=== PATIENT | female | born 1990 | race Caucasian/White ===

== ENCOUNTER 2017-04-16 05:14 | Day surgery (SDC) | payer OTHER ==
[~2017-04-16] VITALS: Ht 162.6 cm; Wt 54.4 kg
[~2017-04-16 05:14] MED LIST: AMOXICILLIN500 M1 PO; AMOXICILLIN500 MG PO; ATARAX,VISTARIL25 MG PO; BENADRYL25 MG PO; CEFDINIR300 MG PO; CLEOCIN300 MG PO; ENDOCET 5-3251 EACH PO; FLOMAX0.4 MG PO; IBUPROFEN800 MG PO; JUNEL1 EAC1 PO; KEFLEX500 MG PO; KENALOG,ARISTOC80 G1 TP; MOTRIN600 MG PO; NORCO 7.5/321 TABLET PO; PEN-VEE K,VEET500 MG PO; PNV PRENATAL P1 EACH PO; PRENATAL TABLE1 EAC3 PO; PRILOSEC20 MG PO; TYLENOL WITH C1 EACH PO
[2017-04-16 05:56] VITALS: BP 100/59
[2017-04-16] MEDS ORDERED: MOTRIN800 MG PO (08:30)
[2017-04-16] MEDS ORDERED: PERCOCET 5/31 TABLET PO (08:30)
[2017-04-16 09:48] VITALS: BP 118/41
[2017-04-16 10:10] VITALS: BP 103/68
== END 2017-04-16 10:46 | disposition home or self-care (01) ==
LOC: SDC 05:14
PROC: 0UL74ZZ Occlusion of Bilateral Fallopian Tubes, Percutaneous Endoscopic Approach (ICD-10-PCS; principal; 2017-04-16)
DX: Z30.2 Encounter for sterilization (principal); F17.210 Nicotine dependence, cigarettes, uncomplicated; Z83.3 Family history of diabetes mellitus; Z80.0 Family history of malignant neoplasm of digestive organs; Z80.6 Family history of leukemia
CPT/HCPCS: J0330; J1100; J1170; J1885; J2250; J2405; J2765; J3010

== ENCOUNTER 2017-06-08 12:42 | Emergency (ER) | payer OTHER ==
[~2017-06-08] VITALS: Ht 162.6 cm; Wt 54.5 kg
[~2017-06-08 12:42] MED LIST changes: +MOTRIN800 MG PO; +PERCOCET 5/31 TABLET PO
[2017-06-08 12:45] VITALS: BP 107/66
[2017-06-08] MEDS ORDERED: NORCO 5/3251 TABLET PO (14:22)
[2017-06-08] MEDS ORDERED: PEN-VEE K,VEET500 MG PO (14:22)
== END 2017-06-08 14:34 | disposition home or self-care (01) ==
LOC: EME 12:42
DX: K04.7 Periapical abscess without sinus (principal); K08.89 Other specified disorders of teeth and supporting structures; F17.200 Nicotine dependence, unspecified, uncomplicated; Z88.1 Allergy status to other antibiotic agents
CPT/HCPCS: 99281; 99284